=== PATIENT | female | born 1970 | race Hispanic/Latino ===

== ENCOUNTER 2022-08-23 06:22 | Observation (INO) | payer OTHER ==
[2022-08-23 06:39] LABS: Urine Blood Negative (Negative); Urine Glucose Negative (Negative); Urine Protein Negative (Negative); Urine Specific Gravity <=1.005 (1.005-1.030)
[2022-08-23 06:47] LABS: Urine Bacteria None Seen /HPF (<20); Urine RBC <5 /HPF (None Seen)
[2022-08-23] MEDS ORDERED: NA CHLORIDE 0.9% 1,000 ML ONE (06:53)
[2022-08-23] MEDS ORDERED: ONDANSETRON 4 MG/2 ML VIAL ONE (06:53)
[2022-08-23 06:56] LABS: Absolute Lymphocytes (CBC) 1.7 K/uL (0.7-4.9); Hematocrit 42.9 % (36.0-45.0); Lymphocytes % 17.4 % (15.3-44.8); MCV 89.1 fL (80-100); MPV 8.6 fL (7.6-11.3); RBC Red Blood Cell Count 4.81 M/uL (3.86-4.86)
[2022-08-23 07:13] LABS: Albumin 3.7 g/dL (3.4-5.0); Bilirubin Total 0.7 mg/dL (0.2-1.0); Potassium 3.6 mmol/L (3.5-5.1); Protein, Total 7.4 g/dL (6.4-8.2)
[2022-08-23] MEDS ORDERED: KETOROLAC 30 MG/ML INJ ONE (08:10)
--- NOTE | 2022-08-23 09:31 | RAD REPORT ---
EXAM DESCRIPTION: CT - Abdomen Pelvis W Contrast - 08/23/2022 7:29 am CLINICAL HISTORY: abdominal pain COMPARISON: No comparisons TECHNIQUE: Biphasic, helical CT imaging of the abdomen and pelvis was performed following 100 ml non -ionic IV contrast. Oral contrast: No. All CT scans are performed using dose optimization technique as appropriate and may include automated exposure control or mA/KV adjustment according to patient size. FINDINGS: No suspicious findings in the lung bases. The liver, spleen, and pancreas show no suspicious findings. Cholecystectomy clips are present. No bi liary tree dilatation. Symmetric renal function is seen with no hydronephrosis or suspicious renal mass. No pyelonephritis o r acute parenchymal process. No bladder abnormalities. No adrenal abnormalities. A 25 millimeter cyst is present in the medial upper pole right kidney. No dilated bowel loops or bowel wall thickening. No acute GI finding identifiable. The appendix is no rmal. No free air, free fluid or inflammatory stranding. No mass or bulky lymphadenopathy. There is a very minimal 10 mm fat only umbilical hernia. No acute bone finding. There is surgical hardware present at the L4-5 disc level. This does cause romelia e bandlike artifact at this level. No pathologic or acute bone process seen. Arterial calcifications are present. Final written report was delayed due to malfunctioning dictation nodule. Verbal report was telephoned to Dr. Singh 7:44 a.m.. IMPRESSION: Contrast enhanced CT abdomen and pelvis showing no acute or emergent finding. Nonacute findings detailed in the body of the report.
--- NOTE | 2022-08-23 11:42 | ER ---
Nurse's Notes [facility] Name: Jeri Valenzuela Age: 52 yrs Sex: Female : 1970 Arrival Date: 08/23/2022 Time: 06:25 Bed 5 Private MD: Diagnosis: Chest pain, unspecified;Tobacco abuse counseling;Tobacco use;Obesity, unspecified Presentation: 08/23 06:43 Chief complaint: Patient states: "I woke up this morning with severe left sided pain. tw5 It radiates up to the center of my chest. It woke me up from my sleep it was so bad.". Ebola Screen: Patient negative for fever greater than or equal to 101.5 degrees Fahrenheit, and additional compatible Ebola Virus Disease symptoms Patient denies exposure to infectious person. Patient denies travel to an Ebola-affected area in the 21 days before illness onset. Initial Sepsis Screen: Does the patient meet any 2 criteria? RR > 20 per min. HR > 90 bpm. Does the patient have a suspected source of infection? No. Patient's initial sepsis screen is negative. Risk Assessment: Do you want to hurt yourself or someone else? Patient reports no desire to harm self or others. Onset of symptoms was August 23, 2022 at 03:20. 06:43 Method Of Arrival: Wheelchair tw 06:43 Acuity: EMORY 2 tw5 Triage Assessment: 06:56 General: Appears distressed, uncomfortable, Behavior is anxious, crying. Pain: kl Complains of pain in left flank Pain radiates to back of left leg. EENT: No deficits noted. Neuro: No deficits noted. Cardiovascular: No deficits noted. Respiratory: No deficits noted. GI: No deficits noted. No signs and/or symptoms were reported involving the gastrointestinal system. : No deficits noted. No signs and/or symptoms were reported regarding the genitourinary system. Derm: Rash noted that is papular, raised, bilateral upper extremities. Historical: - Allergies: 06:45 Morphine; 06:45 OxyContin; 06:54 Ancef; kl 06:54 Dilaudid; kl - Home Meds: 06:45 'currently out of all meds' [Active]; tw5 - PMHx: 06:45 Hypertensive disorder; 06:54 Arthritis; pulmonary embolus; Chronic pain; kl - Immunization history:: Adult Immunizations not up to date. - Social history:: Smoking status: Patient reports the use of cigarette tobacco products, smokes one pack cigarettes per day. Screenin:00 [facility] ED Fall Risk Assessment (Adult) History of falling in the last 3 months, kl including since admission No falls in past 3 months (0 pts) Confusion or Disorientation No (0 pts) Intoxicated or Sedated No (0 pts) Impaired Gait Yes (1 pt) Mobility Assist Device Used No (0 pt) Altered Elimination No (0 pt) Score/Fall Risk Level 0 - 2 = Low Risk Oriented to surroundings, Maintained a safe environment, Hourly rounding (assess needs \\T\\ fall precautionary measures) done. Abuse screen: Denies threats or abuse. Nutritional screening: No deficits noted. Tuberculosis screening: No symptoms or risk factors identified. Assessment: 06:59 Reassessment: see triage assessment. 07:23 Reassessment: dr gold notified of trop level. kl 08:02 Reassessment:. ld1 08:16 Reassessment: Patient and/or family updated on plan of care and expected duration. Pain ld1 level reassessed. Pt C/O severe left flank pain. Notified ERP. See MAR for orders. 11:02 Reassessment: Patient appears in no apparent distress at this time. Patient and/or ld1 family updated on plan of care and expected duration. Pain level reassessed. Patient is alert, oriented x 3, equal unlabored respirations, skin warm/dry/pink. 11:49 Reassessment: Patient and/or family updated on plan of care and expected duration. Pain ap3 level reassessed. Patient is alert, oriented x 3, equal unlabored respirations, skin warm/dry/pink. 12:00 Reassessment: Report received from ALLISON Zuniga. mb9 12:51 General: Appears in no apparent distress. comfortable, Behavior is calm, cooperative, mb9 appropriate for age. Pain: Complains of pain in LLQ Pain radiates to chest Pain currently is 3 out of 10 on a pain scale. Quality of pain is described as aching. Neuro: Allan Agitation-Sedation Scale (RASS): 0 - Alert and Calm Level of Consciousness is awake, alert, obeys commands, Oriented to person, place, time, situation, Appropriate for age. Cardiovascular: Heart tones S1 S2 present Rhythm is regular. Respiratory: Airway is patent Respiratory effort is even, unlabored, Respiratory pattern is regular, symmetrical, Breath sounds are clear bilaterally. GI: Abdomen is round distended, Bowel sounds present X 4 quads. Abdomen is tender to palpation in left lower quadrant Abd is rigid Reports bloating. : No signs and/or symptoms were reported regarding the genitourinary system. EENT: No signs and/or symptoms were reported regarding the EENT system. Derm: Skin is pink, warm \\T\\ dry. Musculoskeletal: Range of motion: intact in all extremities. Vital Signs: 06:43 BP 161 / 111; Pulse 99; Resp 22; Temp 97.8; Pulse Ox 100% ; Weight 131.54 kg; Height 5 tw5 ft. 8 in. (172.72 cm); Pain 7/10; 06:57 BP 145 / 86; Pulse 94; Resp 18; Temp 98(O); Pulse Ox 99% on R/A; kl 08:02 BP 111 / 81; Pulse 72; Resp 18; Pulse Ox 97% on R/A; ld1 08:16 BP 155 / 102; Pulse 100; Resp 23; Pulse Ox 98% on R/A; Pain 10/10; ld1 08:52 BP 135 / 65; Pulse 72; ap3 10:17 BP 128 / 59; Pulse 79; Pulse Ox 96% ; ap3 11:02 BP 118 / 67; Pulse 74; Resp 18; Pulse Ox 95% on R/A; ld1 11:48 BP 105 / 79; Pulse 81; ap3 12:51 BP 107 / 59; Pulse 68; Resp 20; Pulse Ox 97% on 2 lpm NC; Pain 2/10; mb9 06:43 Body Mass Index 44.09 (131.54 kg, 172.72 cm) tw5 ED Course: 06:25 Patient arrived in ED. jj6 06:37 Jodie Gold MD is Attending Physician. sp3 06:45 Triage completed. tw5 06:45 Inserted saline lock: 20 gauge in right antecubital area, using aseptic technique. jb4 Blood collected. 06:45 Initial lab(s) drawn, by me, sent to lab. jb4 06:59 Troponin High Sensitivity Sent. kl 07:31 CT Abd/Pelvis - PO and IV Contrast In Process Unspecified. EDMS 08:14 Ester Trujillo, RN is Primary Nurse. ld1 09:23 Repeat lab(s) drawn. by ny, sent to lab. [facility] 11:24 Attending Physician role handed off by Jodie Gold MD [facility] 11:24 Richard Haskins MD is Attending Physician. [facility] 11:39 Cristian Vides MD is Hospitalizing Provider. betsey 11:47 SARS RAPID Sent. ap3 21:01 Patient admitted, IV remains in place. mb9 Administered Medications: 06:58 Drug: NS 0.9% 1000 ml Route: IV; Rate: 1 bolus; Site: right antecubital; kl 06:58 Drug: Zofran (Ondansetron) 4 mg Route: IVP; Site: right antecubital; kl 07:06 Not Given (Patient Refused): Dilaudid (HYDROmorphone) 1 mg IVP once kl 08:15 Drug: Ketorolac 30 mg Route: IVP; Site: right antecubital; ld1 09:43 Follow up: Response: No adverse reaction ap3 11:48 Drug: Aspirin Chewable Tablet 324 mg Route: PO; ap3 13:55 Drug: Lovenox (enoxaparin) 100 mg Route: Sub-Q; Site: right lower abdomen; mb9 14:09 Follow up: Response: No adverse reaction mb9 Outcome: 11:41 Decision to Hospitalize by Provider. betsey 21:01 Admitted to Tele accompanied by tech, via wheelchair, with chart, Report called to emir Naik RN 21:01 Condition: stable 21:02 Patient left the ED. emir Signatures: Dispatcher [employer] EDMS Daphnie Duff, RN Richard Sheets MD MD cha Bryson, James RN RN jb4 Nadia Barriga RN RN ap3 Ester Trujillo, ALLISON RN ld1 Jodie Gold MD MD sp3 Wood, Tiffany tw5 Arti Vasquez Jodi jw7 Maddie Arellano, RN RN [email or web address] Corrections: (The following items were deleted from the chart) 09:24 09:24 Troponin High Sensitivity+C.LAB.BRZ drawn and sent. [facility] EDNC
--- NOTE | 2022-08-23 11:42 | EDPHYS ---
Physician Documentation [facility] Name: Jeri Valenzuela Age: 52 yrs Sex: Female : 1970 Arrival Date: 08/23/2022 Time: 06:25 Bed 5 Private MD: LEON Physician Richard Haskins HPI: 08/23 06:49 This 52 yrs old Female presents to ER via Wheelchair with complaints of sp3 Abdominal Pain, Low Back Pain. 06:49 52-year-old female with history of kidney stones, prior pulmonary embolism 3 years ago, sp3 hypertension and now presents with sudden onset of left upper back, left flank, left abdominal pain that started approximately 5 AM today and awoke her from sleep. Patient denies fever, headache, neck pain, chest pain, upper anterior abdominal pain, urinary symptoms, , rash, URI symptoms, travel history, known sick contacts, bad food intake, vomiting, diarrhea, any other aspect of ROS at this time. Pain comes and goes and is sharp in nature. Historical: - Allergies: 06:45 Morphine; tw5 06:45 OxyContin; tw5 06:54 Ancef; kl 06:54 Dilaudid; kl - Home Meds: 06:45 'currently out of all meds' [Active]; tw5 - PMHx: 06:45 Hypertensive disorder; tw5 06:54 Arthritis; pulmonary embolus; Chronic pain; kl - Immunization history:: Adult Immunizations not up to date. - Social history:: Smoking status: Patient reports the use of cigarette tobacco products, smokes one pack cigarettes per day. ROS: 06:51 Constitutional: Negative for fever, chills, and weight loss, Eyes: Negative for injury, sp3 pain, redness, and discharge, Neck: Negative for injury, pain, and swelling, Cardiovascular: Negative for chest pain, palpitations, and edema, Respiratory: Negative for shortness of breath, cough, wheezing, and pleuritic chest pain, MS/Extremity: Negative for injury and deformity, Skin: Negative for injury, rash, and discoloration, Neuro: Negative for headache, weakness, numbness, tingling, and seizure, Psych: Negative for depression, anxiety, suicide ideation, homicidal ideation, and hallucinations, Allergy/Immunology: Negative for hives, rash, and allergies, Endocrine: Negative for neck swelling, polydipsia, polyuria, polyphagia, and marked weight changes, Hematologic/Lymphatic: Negative for swollen nodes, abnormal bleeding, and unusual bruising. 06:51 All other systems are negative. Exam: 06:51 Constitutional: This is a well developed, well nourished patient who is awake, alert, sp3 and in no acute distress. Head/Face: Normocephalic, atraumatic. ENT: Nares patent. No nasal discharge, no septal abnormalities noted. External auditory canals are clear. Oropharynx with no redness, swelling, or masses, exudates, or evidence of obstruction, uvula midline. Mucous membranes moist. Neck: Trachea midline, no thyromegaly or masses palpated, and no cervical lymphadenopathy. Supple, full range of motion without nuchal rigidity, or vertebral point tenderness. No Meningismus. Chest/axilla: Normal chest wall appearance and motion. Nontender with no deformity. No lesions are appreciated. Cardiovascular: Regular rate and rhythm with a normal S1 and S2. No gallops, murmurs, or rubs. Normal PMI, no JVD. No pulse deficits. Respiratory: Lungs have equal breath sounds bilaterally, clear to auscultation and percussion. No rales, rhonchi or wheezes noted. No increased work of breathing, no retractions or nasal flaring. Skin: Warm, dry with normal turgor. Normal color with no rashes, no lesions, and no evidence of cellulitis. MS/ Extremity: Pulses equal, no cyanosis. Neurovascular intact. Full, normal range of motion. Neuro: Awake and alert, GCS 15, oriented to person, place, time, and situation. Cranial nerves II-XII grossly intact. Motor strength 5/5 in all extremities. Sensory grossly intact. Cerebellar exam normal. Normal gait. Psych: Awake, alert, with orientation to person, place and time. Behavior, mood, and affect are within normal limits. 06:51 Abdomen/GI: Patient has pain to palpation left lower abdomen. Also left CVA tenderness.. Vital Signs: 06:43 BP 161 / 111; Pulse 99; Resp 22; Temp 97.8; Pulse Ox 100% ; Weight 131.54 kg; Height 5 tw5 ft. 8 in. (172.72 cm); Pain 7/10; 06:57 BP 145 / 86; Pulse 94; Resp 18; Temp 98(O); Pulse Ox 99% on R/A; kl 08:02 BP 111 / 81; Pulse 72; Resp 18; Pulse Ox 97% on R/A; ld1 08:16 BP 155 / 102; Pulse 100; Resp 23; Pulse Ox 98% on R/A; Pain 10/10; ld1 08:52 BP 135 / 65; Pulse 72; ap3 10:17 BP 128 / 59; Pulse 79; Pulse Ox 96% ; ap3 11:02 BP 118 / 67; Pulse 74; Resp 18; Pulse Ox 95% on R/A; ld1 11:48 BP 105 / 79; Pulse 81; ap3 12:51 BP 107 / 59; Pulse 68; Resp 20; Pulse Ox 97% on 2 lpm NC; Pain 2/10; mb9 06:43 Body Mass Index 44.09 (131.54 kg, 172.72 cm) tw5 MDM: 06:39 Patient medically screened. sp3 06:52 Data reviewed: vital signs, nurses notes, lab test result(s), EKG, radiologic studies. sp3 ED course: 52-year-old female with complex medical history presents again for left-sided pain and symptoms. Differential diagnosis is broad and includes kidney stone, pulmonary embolism, cardiac event, vascular/aorta event, functional abdominal pain, pyelonephritis, UTI bowel obstruction, among others. Not highly suspicious for [employer]IST etiology. We will differentiate these possibilities with the following work-up which will consist of laboratory values, urine analysis, EKG, CT scan of the chest abdomen and pelvis with IV and p.o. contrast. Physician TBD and will be signed out to daytime physician for final disposition. Dilaudid and Zofran IV for pain control.. 08/23 06:39 Order name: CBC with Diff; Complete Time: 07:47 sp3 08/23 06:39 Order name: CMP; Complete Time: 07:47 sp3 08/23 06:39 Order name: Lipase; Complete Time: 07:47 sp3 08/23 06:39 Order name: Urine Microscopic Only; Complete Time: 07:47 sp3 08/23 06:39 Order name: Urine Dipstick-Ancillary EDMS 08/23 06:40 Order name: Test, Serum; Complete Time: 07:47 tw5 08/23 06:49 Order name: Troponin High Sensitivity; Complete Time: 07:47 sp3 08/23 07:22 Order name: Quantitative Hcg; Complete Time: 07:47 kl 08/23 07:49 Order name: Troponin High Sensitivity: Two hours after first draw; Complete Time: 11:24 sp3 08/23 11:39 Order name: SARS RAPID; Complete Time: 13:38 betsey 08/23 12:57 Order name: D-Dimer; Complete Time: 13:38 EDMS 08/23 13:02 Order name: Creatine Phosphokinase EDMS 08/23 13:02 Order name: Lipid Profile EDMS 08/23 13:02 Order name: Magnesium EDMS 08/23 06:39 Order name: CT Abd/Pelvis - PO and IV Contrast; Complete Time: 11:24 sp3 08/23 13:02 Order name: Echo with Doppler EDMS 08/23 13:02 Order name: Phosphorus EDMS 08/23 13:02 Order name: T4 Free EDMS 08/23 13:02 Order name: Thyroid Stimulating Hormone EDMS 08/23 13:02 Order name: Urinalysis EDMS 08/23 13:02 Order name: Basic Metabolic Panel EDMS 08/23 13:02 Order name: Basic Metabolic Panel EDMS 08/23 13:02 Order name: CBC with Automated Diff EDMS 08/23 13:02 Order name: CBC with Automated Diff EDMS 08/23 13:02 Order name: NT PRO-BNP EDMS 08/23 13:02 Order name: NT PRO-BNP EDMS 08/23 13:40 Order name: US Extremity Venous W Compression Bruce betsey 08/23 13:49 Order name: Troponin High Sensitivity EDMS 08/23 14:46 Order name: US EDMS 08/23 19:18 Order name: Troponin High Sensitivity EDMS 08/23 06:39 Order name: IV Saline Lock; Complete Time: 06:58 sp3 08/23 06:39 Order name: Labs collected and sent; Complete Time: 06:58 sp3 08/23 06:39 Order name: Urine Dipstick-Ancillary (obtain specimen); Complete Time: 06:39 sp3 08/23 06:49 Order name: EKG - Nurse/Tech; Complete Time: 06:58 sp3 08/23 13:02 Order name: CONS Physician Consult EDMS 08/23 13:02 Order name: Heart Healthy EDMS 08/23 15:43 Order name: CT EDMS Administered Medications: 06:58 Drug: NS 0.9% 1000 ml Route: IV; Rate: 1 bolus; Site: right antecubital; kl 06:58 Drug: Zofran (Ondansetron) 4 mg Route: IVP; Site: right antecubital; kl 07:06 Not Given (Patient Refused): Dilaudid (HYDROmorphone) 1 mg IVP once kl 08:15 Drug: Ketorolac 30 mg Route: IVP; Site: right antecubital; ld1 09:43 Follow up: Response: No adverse reaction ap3 11:48 Drug: Aspirin Chewable Tablet 324 mg Route: PO; ap3 13:55 Drug: Lovenox (enoxaparin) 100 mg Route: Sub-Q; Site: right lower abdomen; mb9 14:09 Follow up: Response: No adverse reaction mb9 Disposition Summary: 08/23/22 11:41 Hospitalization Ordered Hospitalization Status: Observation betsey Provider: Cristian Vides cha Location: Telemetry/[facility]Sur (observation) betsey Condition: Stable betsey Problem: new betsey Symptoms: have improved betsey Bed/Room Type: Standard betsey Room Assignment: 409(08/23/22 19:00) eb1 Diagnosis - Chest pain, unspecified betsey - Tobacco abuse counseling betsey - Tobacco use betsey - Obesity, unspecified betsey Forms: - Medication Reconciliation Form betsey - SBAR form betsey Signatures: Dispatcher [employer] EDMS Daphnie Duff RN RN kl Anderson, Corey, MD MD cha Prokisch, Amanda, RN RN ap3 Paty Dennis RN RN eb1 Ester Trujillo RN RN ld1 Jodie Singh MD MD sp3 Wood, Tiffany tw5 Maddie Arellano RN RN mb9 Corrections: (The following items were deleted from the chart) 06:39 06:39 Urine Test ordered. sp3 tw5 09:24 07:49 Troponin High Sensitivity+C.LAB.BRZ ordered. EDKS EDMS 19:00 11:41 betsey eb1
[2022-08-23] MEDS ORDERED: ASPIRIN 81 MG CHEWABLE TABLET ONE (11:46)
[2022-08-23 12:05] LABS: SARS-CoV-2 Antigen Rapid Res Negative (Negative)
[2022-08-23] MEDS ORDERED: ACETAMINOPHEN 325 MG TABLET PO PRN (12:52)
[2022-08-23] MEDS ORDERED: ONDANSETRON 4 MG/2 ML VIAL IV PRN (12:57)
--- NOTE | 2022-08-23 13:06 | P.HP ---
Certification for Inpatient Patient admitted to: Observation With expected LOS: <2 Midnights Patient will require the following post-hospital care: None Practitioner: I am a practitioner with admitting privileges, knowledge of patient current condition, hospital course, and medical plan of care. Services: Services provided to patient in accordance with Admission requirements found in Title 42 Section 412.3 of the Code of Federal Regulations <Brice Boston - Last Filed: 08/23/22 13:47> Patient History Date of Service: 08/23/22 Reason for admission: chest pain, abd pain History of Present Illness: Patient is a 52-year-old female with a past medical history significant for PE, hypertension, obesity, osteoarthritis, nicotine dependence, chronic pain syndrome who presents with complaint of chest pain onset this morning. Patient reported that she initially started having upper back pain earlier this morning and pain radiated to her left upper quadrant as well as her left chest area. Patient rated pain as 8/10 in severity and described pain as sharp constant in quality. Patient reported associated signs and symptoms of nausea, headache and shortness of breath. Patient denies any other signs and symptoms. Symptoms are aggravated or relieved by nothing. Patient decided to present to the hospital due to worsening symptoms. - Past Medical/Surgical History -: Osteoarthritis -: Nicotine dependence -: Pulmonary embolism -: Chronic pain syndrome -: Hypertension. Past Surgical History: Reviewed- Non-Contributory - Family History Family History: Reviewed- Non-Contributory - Social History Smoking Status: Current every day smoker Counseled patient to stop smoking for: less than 10 minutes Smoking therapy provided: Yes Patient receptive to therapy: Yes Alcohol use: No CD- Drugs: No Caffeine use: Yes Place of Residence: Home <Brice Boston - Last Filed: 08/23/22 13:47> Date of Service: 08/23/22 <Cristian Vides - Last Filed: 08/23/22 20:10> Allergies cefazolin [From Ancef] Allergy (Verified 08/23/22 13:08) UNK hydromorphone [From Dilaudid] Allergy (Verified 08/23/22 13:08) UNK morphine Allergy (Verified 08/23/22 13:08) UNK oxycodone [From OxyContin] Allergy (Verified 08/23/22 13:08) UNK Review of Systems General: Unremarkable Eyes: Unremarkable ENT: Unremarkable Respiratory: Shortness of Breath Cardiovascular: Chest Pain Gastrointestinal: Nausea, Abdominal Pain Genitourinary: Unremarkable Musculoskeletal: Back Pain Integumentary: Unremarkable Neurological: Other (Headache ), Unremarkable Lymphatics: Unremarkable <LudyBrice Saeed - Last Filed: 08/23/22 13:47> Physical Examination - Physical Exam General: Alert, In no apparent distress, Oriented x3, Cooperative HEENT: Atraumatic, PERRLA, Mucous membr. moist/pink, EOMI, Sclerae nonicteric Neck: Supple, 2+ carotid pulse no bruit, JVD not distended, No LAD, Without JVD or thyroid abnormality Respiratory: Diminished Cardiovascular: No edema, Regular rate/rhythm, Normal S1 S2 Capillary refill: <2 Seconds Gastrointestinal: Normal bowel sounds, Soft and benign, Tenderness Musculoskeletal: No clubbing, No swelling, No tenderness Integumentary: No rashes, No breakdown, No significant lesion Neurological: Normal speech, Normal tone, Normal affect Lymphatics: No axilla or inguinal lymphadenopathy - Studies Laboratory Data (last 24 hrs) 08/23/22 06:45: Sodium 139, Potassium 3.6, BUN 7, Creatinine 0.74, Glucose 101, Total Bilirubin 0.7, AST 9 L, ALT 20, Alkaline Phosphatase 136 H, Lipase 93 08/23/22 06:45: WBC 9.50, Hgb 14.5, Hct 42.9, Plt Count 255 <Brice Boston - Last Filed: 08/23/22 13:47> - Studies Laboratory Data (last 24 hrs) 08/23/22 06:45: Sodium 139, Potassium 3.6, BUN 7, Creatinine 0.74, Glucose 101, Total Bilirubin 0.7, AST 9 L, ALT 20, Alkaline Phosphatase 136 H, Lipase 93 08/23/22 06:45: WBC 9.50, Hgb 14.5, Hct 42.9, Plt Count 255 <Cristian Vides - Last Filed: 08/23/22 20:10> Assessment and Plan - Plan --Chest pain. To rule out ACS. Will trend troponins--currently elevated. Echocardiogram pending to assess cardiac structures and functions. Cardiology consulted. Telemetry to monitor for any significant arrhythmia. We will await further recommendation from lapping machine operator. --History of PE. Continue Lovenox subQ --Osteoarthritis\chronic pain syndrome. We will manage pain with current pain medication regimen. -- Obesity. Likely secondary to excess calories intake. Patient counseled on weight reduction, diet and excise therapy. --Nicotine dependence. Patient placed on nicotine patch and counseled on tobacco cessation. --Elevated D-dimer. CTA PE chest protocol pending to rule out PE. Continue supportive care --Abdominal pain. CT abdomen unremarkable for any intra-abdominal abnormality. We will manage pain with current pain medication regimen. --DVT prophylaxis with Lovenox subQ. Discharge Plan: Home Plan to discharge in: 48 Hours - Advance Directives Does patient have a Living Will: No Does patient have a Durable POA for Healthcare: No - Code Status/Comfort Care Code Status Assessed: Yes Physician Review: Patient Assessed, Agree with Above Assessment and Plan Critical Care: No <Brice Boston - Last Filed: 08/23/22 13:47> Physician Review: Patient Assessed, Agree with Above Assessment and Plan <Cristian Vides - Last Filed: 08/23/22 20:10>
[2022-08-23 13:50] LABS: Phosphorus 4.1 mg/dL (2.5-4.9); Thyroid Stimulating Hormone 1.52 uIU/mL (0.358-3.740)
[2022-08-23] MEDS ORDERED: ENOXAPARIN 100 MG/ML SYR SQ ONE (13:55)
[2022-08-23] MEDS ORDERED: HYDROCODONE/APAP 5/325 MG TAB ONE (14:42)
[2022-08-23] MEDS: HYDROCODONE/APAP 5/325 MG TAB PO PRN ×2 (14:44→22:02)
--- NOTE | 2022-08-23 14:45 | RAD REPORT ---
EXAM DESCRIPTION: USExtrem Venous W Compress Bil08/23/2022 2:25 pm CLINICAL HISTORY: Leg pain COMPARISON: none FINDINGS: The common femoral, superficial femoral, greater saphenous, popliteal and posterior tibial veins bilaterally are compressible and demonstrate augmentation. Doppler demonstrates good flow. Grayscale, color and spectral analysis performed on all vessels IMPRESSION: No evidence of deep venous thrombosis involving either lower extremity.
[2022-08-23 14:55] VITALS: BMI 44.1
--- NOTE | 2022-08-23 15:42 | RAD REPORT ---
EXAM DESCRIPTION: CT - Chest For Pe Angio - 08/23/2022 3:20 pm CLINICAL HISTORY: Chest pain COMPARISON: None. TECHNIQUE: Dynamically enhanced axial 3 mm thick images of the chest were obtained during administra tion of <100> mL Isovue 370 IV contrast. Coronal and oblique reconstruction images were generated and reviewed. Exam utilizes a protocol for optimal evaluation of pulmonary arterial tree. Maximum intensity projections 3D imaging was utilized All CT scans are performed using dose optimization technique as appropriate and may include automated exposure control or mA/KV adjustment according to patient size. FINDINGS: Very thin linear low-density is present within the left lower lobe pulmonary artery. Other griffin, no pulmonary embolism. A thoracic aortic aneurysm is not noted. A pleural effusion is not seen. A pericardial effusion is not seen. A lung consolidation is not present. IMPRESSION: Very thin low-density area within the left lower lobe pulmonary artery is equivocal for old very small chronic thrombus. . No acute pulmonary embolism
--- NOTE | 2022-08-23 16:23 | CON ---
Date of Consultation: 08/23/2022 Reason For Consultation: Chest pain. History Of Present Illness: A 52-year-old female with history of hypertension, obesity, psoriasis, P E, presented with pain started in her mid back on the left side, traveled all the way around the [facility] to the chest and when it traveled to the chest, start feeling concerned so she came into the emerg ency room. There is no skin rash. No fever. Past Medical History: As outlined above in the HPI. Medications: Refer to reconciliation sheet for detailed list. Allergies: CEFAZOLIN, HYDROMORPHONE, MORPHINE, AND OXYCODONE. Family History: No premature coronary artery disease or cancer. Social History: She is a smoker half pack per day. Does not drink, use any drugs. Review of Systems: All systems reviewed and they were negative except what mentioned in HPI. Physical Examination: Vital Signs: Reviewed. Head and Neck: Pupils are equal, reactive to light. Intact eye movements. No JVD. No cervical lym phadenopathy. Neck is supple. Thyroid is not enlarged. Lungs: Clear to auscultation bilaterally. No rhonchi, wheezing, or crackles. No accessory muscle u se. Heart: Regular rate and rhythm. No extra sounds. Abdomen: Soft, nontender. Bowel sounds positive. No organomegaly. No masses or hernia. No rigidi ty or rebound. Extremities: No edema, clubbing, or cyanosis. Intact pulses. Skin: No rash. Neurologic: Alert, awake, oriented x3. No acute focal deficits appreciated. Lymph Nodes: No cervical or axillary lymphadenopathy. Investigations: Troponin was slightly elevated at 62. CTA of the chest, no acute PE. Lower extremi ty venous Doppler was negative. BUN 7, creatinine 0.74. Assessment And Recommendations: 1.Chest pain, atypical. Troponin was mildly elevated and then trended normal. She is a smoker. Th e patient will need an exercise stress test to further evaluate this issue. Meanwhile, continue aspi rin for pain control. 2.Lower back pain and abdominal pain. Urinalysis is negative. Had a CT scan of the abdomen and pel vis that showed no acute findings. The distribution of the pain follows dermatome, so this could be a beginning of shingles. The patient needs to be monitored for skin rash. SR/MODL Voice ID: [id number] Report ID: [id number]
[2022-08-24 04:13] LABS: Absolute Lymphocytes (CBC) 1.8 K/uL (0.7-4.9); Lymphocytes % 24.8 % (15.3-44.8); MPV 8.9 fL (7.6-11.3); RBC Red Blood Cell Count 4.33 M/uL (3.86-4.86)
[2022-08-24 04:37] LABS: Potassium 4.2 mmol/L (3.5-5.1)
[2022-08-24 08:25] VITALS: BP 126/60; TEMP 99.4
[2022-08-24] MEDS: HYDROCODONE/APAP 5/325 MG TAB PO PRN (08:38)
[2022-08-24] MEDS ORDERED: NICOTINE 21 MG/PAT TD SCH (09:00)
[2022-08-24] MEDS ORDERED: ASPIRIN 81 MG CHEWABLE TABLET PO SCH (09:00)
[2022-08-24] MEDS ORDERED: ENOXAPARIN 40 MG/0.4 ML SQ SCH (09:00)
[2022-08-24 09:40] VITALS: O2SAT 91
--- NOTE | 2022-08-24 11:53 | P.DS ---
Admission Date: 08/23/22 Discharge Date: 08/24/22 Disposition: ROUTINE DISCHARGE Discharge Condition: GOOD Reason for Admission: chest pain, abd pain Consultations: 1. Cardiology Hospital Course: DIAGNOSES: # Atypical Chest Pain # Elevated D-Dimer with History of Pulmonary Embolism # Positive beta-hCG screen # Chronic Pain Syndrome # Tobacco Use Disorder # Morbid Obesity - BMI 44.1 kg/m2 HOSPITAL COURSE: Ms. Jeri Valenzuela is a pleasant 52-year-old female with a past medical history significant for chronic pain syndrome and tobacco use disorder who was admitted to the [facility] on 08/23/2022 for chest discomfort. She was admitted to the Medicine service. Upon further evaluation, her troponin trend remained flat. Her EKG was without STEMI criteria. She was found to have a mildly elevated D-dimer at 604. A bilateral lower extremity Doppler revealed, "no evidence of deep venous thrombosis involving either lower extremity." A CT chest angiogram revealed, "very thin low-density area within the left lower lobe pulmonary artery is equivocal for old very small chronic thrombus. No acute pulmonary embolism." Cardiology was consulted and she was evaluated by Dr. Jackson. He has cleared her for discharge with outpatient work-up. Incidentally, she was found to have a positive beta hCG screen. The value was not high enough to indicate a . Additionally, she is s/p hysterectomy. I explained to her that this is concerning for possible underlying ovarian malignancy, to which she replied that this runs in her family. I highly advised that she follow-up with conveyor line battery charger as soon as possible for further evaluation for possible underlying ovarian malignancy. She verbalized understanding and agreed to make an appointment with Dr. Das. On 08/24/2022, she was seen on morning rounds and deemed medically stable for discharge. She was discharged with instructions to schedule follow-up appointments with her PCP, with Cardiology (Dr. Jackson), and with Senior Software Quality Engineer (Dr. Das). She was given the opportunity to ask questions and reported no further questions. Furthermore, all questions were answered to the best of my ability. A copy of this discharge summary will be sent to the above providers to facilitate continuity of care. Today, I personally spent 25 minutes on her case, of which greater than 50% of the time was spent in patient education, counseling, and coordination of care as described above. Vital Signs/Physical Exam: Temp Pulse Resp BP Pulse Ox 99.4 F 98 H 19 126/60 90 L 08/24/22 08:00 08/24/22 08:00 08/24/22 09:38 08/24/22 08:00 08/24/22 09:38 General: Alert, In no apparent distress, Oriented x3 HEENT: Atraumatic, Mucous membr. moist/pink, EOMI, Sclerae nonicteric Neck: JVD not distended Respiratory: Clear to auscultation bilaterally, Normal air movement Cardiovascular: No edema, Regular rate/rhythm, Normal S1 S2, No gallops, No rubs, No murmurs Gastrointestinal: Normal bowel sounds, Soft and benign, Non-distended, No tenderness, No rebound, No guarding Musculoskeletal: No clubbing Integumentary: No rashes Neurological: Normal speech, Cranial nerves 3-12 intact, Normal affect Laboratory Data at Discharge: WBC 7.40 K/uL (4.3-10.9) 08/24/22 03:42 Hgb 13.0 g/dL (12.0-15.0) D 08/24/22 03:42 Hct 39.0 % (36.0-45.0) 08/24/22 03:42 Plt Count 212 K/uL (152-406) 08/24/22 03:42 Sodium 140 mmol/L (136-145) 08/24/22 03:42 Potassium 4.2 mmol/L (3.5-5.1) D 08/24/22 03:42 BUN 10 mg/dL (7-18) 08/24/22 03:42 Creatinine 0.72 mg/dL (0.55-1.02) 08/24/22 03:42 Glucose 97 mg/dL (74-106) 08/24/22 03:42 Phosphorus 4.1 mg/dL (2.5-4.9) 08/23/22 13:17 Magnesium 2.0 mg/dL (1.6-2.4) 08/23/22 13:17 Total Bilirubin 0.7 mg/dL (0.2-1.0) 08/23/22 06:45 AST 9 U/L (15-37) L 08/23/22 06:45 ALT 20 U/L (13-56) 08/23/22 06:45 Alkaline Phosphatase 136 U/L (45-117) H 08/23/22 06:45 Triglycerides 97 mg/dL (<150) 08/24/22 03:42 Cholesterol 152 mg/dL (<200) 08/24/22 03:42 HDL Cholesterol 46 mg/dL (40-60) 08/24/22 03:42 Cholesterol/HDL Ratio 3.30 08/24/22 03:42 Lipase 93 U/L (73-393) 08/23/22 06:45 Home Medications: RX: Duloxetine HCl [Cymbalta] 60 mg PO 1X 08/23/22 RX: Lisinopril [Zestril] 20 mg PO 1X 08/23/22 RX: Venlafaxine HCl [Venlafaxine HCl ER] 150 mg PO 1X 08/23/22 Aspirin [Sangamon Aspirin] 81 mg PO DAILY #1 tab.chew 08/24/22 New Medications: Aspirin [Sangamon Aspirin] 81 mg PO DAILY #1 tab.chew Physician Discharge Instructions: 1. Please call and schedule a follow-up appointment with your PCP in 3-5 days 2. Please call and schedule a follow-up appointment with Cardiology (Dr. Jackson) in 3-5 days - He will schedule you for an outpatient cardiac stress test 3. Please call and schedule a follow-up appointment with Senior Software Quality Engineer (Dr. Das) in 5-7 days - As we discussed, please have her initiate an evaluation for ovarian cancer Diet: Regular Activity: Ad theodore Followup: Galdino Jackson MD [ACTIVE - CAN ADMIT] - 2-3 Days (Call for appointment.) Alicia Das MD [ACTIVE - CAN ADMIT] - 1 Week (Call for appointment.) NONE,NONE [Primary Care Provider] - 2-3 Days (Call for appointment.) Time spent managing pt's care (in minutes): 25
--- NOTE | 2022-08-24 15:25 | EKG ---
Test Date: 2022-08-23 Test Time: 06:54:24 Zoo Veterinarian: RV MEASUREMENT RESULTS: Intervals: Rate: 80 CA: 144 QRSD: 84 QT: 370 QTc: 426 Clark: P: 76 CA: 144 QRS: 80 T: 72 INTERPRETIVE STATEMENTS: Normal sinus rhythm Normal ECG No previous ECG available for comparison Electronically Signed On 08-24-22 15:22:16 CHANNELING MACHINE RUNNER by Kristian Ibarra
--- NOTE | 2022-08-25 07:00 | ECHO ---
HEIGHT: 5 ft 8 in WEIGHT: 290 lb 0 oz DATE OF STUDY: 08/24/[address]: Brice Boston 2-DIMENSIONAL: YES M.MODE: YES DOPPLER: YES COLOR FLOW: YES TDS: YES PORTABLE: YES DEFINITY: BUBBLE STUDY: DIAGNOSIS: CHEST PAIN CARDIAC HISTORY: CATHERIZATION: NO SURGERY: NO PROSTHETIC VALVE: NO PACEMAKER: NO MEASUREMENTS (cm) DIASTOLIC (NORMALS) SYSTOLIC (NORMALS) IVSd 1.2 (0.6-1.2) LA Diam 3.2 (1.9-4.0) LVEF 57% LVIDd 5.2 (3.5-5.7) LVIDs 3.6 (2.0-3.5) %FS 30% LVPWd 1.3 (0.6-1.2) Ao Diam 2.8 (2.0-3.7) 2 DIMENSIONAL ASSESSMENT: RIGHT ATRIUM: NORMAL LEFT ATRIUM: NORMAL RIGHT VENTRICLE: NORMAL LEFT VENTRICLE: NORMAL TRICUSPID VALVE: MILD TRICUSPID REGURGITATION MITRAL VALVE: MILD MITRAL REGURGITATION PULMONIC VALVE: NORMAL AORTIC VALVE: NORMAL PERICARDIAL EFFUSION: TRACE AORTIC ROOT: NORMAL LEFT VENTRICULAR WALL MOTION: NORMAL DOPPLER/COLOR FLOW: SEE BELOW COMMENTS: 1. NORMAL LEFT VENTRICULAR EJECTION FRACTION 55-60% 2. MILD MITRAL REGURGITATION 3. MILD TRICUPSID REGURGITATION 4. POOR WINDOWS TECHNOLOGIST: SEJAL RAY
== END 2022-08-24 12:25 | disposition home or self-care (01) ==
LOC: ER 06:22 → ERHOLD 12:50 → 4TH 19:16
PROVIDERS: ADMIT Internal Medicine; ATTEND Internal Medicine
DX: R07.9 Chest pain, unspecified (principal); G89.4 Chronic pain syndrome; I10 Essential (primary) hypertension; M19.90 Unspecified osteoarthritis, unspecified site; M54.59 Other low back pain; R10.9 Unspecified abdominal pain; E66.01 Morbid (severe) obesity due to excess calories; F17.200 Nicotine dependence, unspecified, uncomplicated; R79.89 Other specified abnormal findings of blood chemistry; L40.9 Psoriasis, unspecified; Z88.6 Allergy status to analgesic agent; Z88.8 Allergy status to other drugs, medicaments and biological substances; Z86.711 Personal history of pulmonary embolism; Z68.41 Body mass index [BMI] 40.0-44.9, adult; Z32.01 Encounter for pregnancy test, result positive; Z20.822 Contact with and (suspected) exposure to COVID-19; Z71.6 Tobacco abuse counseling
CPT/HCPCS: 93005; 93306; 85025 ×2; 80048; 36415 ×2; 83735; 82550; 84703; 84100; 80061; 85379; 84702; 84443; 84484 ×4; 84439; 83690; 80053; 83880; 71275; 74177; 93970; 96375; 96372; 96374; 99285; 87811; Q9967 ×2; J1650; J7030; J2405; G0378 ×3; 81003; 81015

== ENCOUNTER → 2023-10-24 | Emergency (ER) | payer OTHER ==
[~2023-10-24] MED LIST: ACETAMINOPHEN 325 MG TABLET ONE; ALBUTEROL 2.5 MG/3 ML NEB SOL ONE; IPRATROPIUM BROM 0.5MG/2.5ML ONE; predniSONE 20 MG TAB ONE
--- NOTE | 2023-10-24 18:15 | RAD REPORT ---
EXAM DESCRIPTION: Marjorie Single View10/24/2023 5:36 pm CLINICAL HISTORY: Cough COMPARISON: none FINDINGS: The lungs appear clear of acute infiltrate. The heart is normal size IMPRESSION: No acute abnormalities displayed
--- NOTE | 2023-10-24 21:28 | EDPHYS ---
Physician Documentation [facility] Name: Jeri Valenzuela Age: 53 yrs Sex: Female : 1970 Arrival Date: 10/24/2023 Time: 16:44 Bed 11 Private MD: ED Physician Aguila Fox HPI: 10/23 19:37 This 53 yrs old Female presents to ER via Wheelchair with complaints of kb Breathing Difficulty, Flu Symptoms. 19:37 patient is a 53-year-old female who presents for shortness of breath, cough, kb congestion, fever, chills, sore throat and rhinorrhea that started 4 days ago. Denies nausea, vomiting, diarrhea, abdominal pain . Historical: - Allergies: 17:07 Ancef; tl4 17:07 Dilaudid; tl4 17:07 Morphine; tl4 17:07 OxyContin; tl4 - Home Meds: 17:08 None [Active]; tl4 - PMHx: 17:07 Arthritis; Chronic pain; Hypertensive disorder; pulmonary embolus; tl4 - Immunization history:: Adult Immunizations unknown. - Social history:: Smoking status: Patient reports the use of cigarette tobacco products, smokes one pack cigarettes per day. ROS: 19:36 Constitutional: As per HPI kb Exam: 19:35 Constitutional: This is a well developed, well nourished patient who is awake, alert, kb and in no acute distress. Head/Face: Normocephalic, atraumatic. ENT: Moist Mucous membranes Cardiovascular: Regular rate Abdomen/GI: Soft, non-tender. No distention Skin: Warm, dry with normal turgor. Normal color. MS/ Extremity: Pulses equal, no cyanosis. Neurovascular intact. Full, normal range of motion. Neuro: Awake and alert, GCS 15, oriented to person, place, time, and situation. Moves all extremities. Normal gait. 19:35 ECG was reviewed by the Attending Physician. 19:35 Respiratory: the patient does not display signs of respiratory distress, Respirations: normal, Breath sounds: wheezing: expiratory that is mild, is heard diffusely, Vital Signs: 17:04 BP 157 / 92; Pulse 117; Resp 22; Temp 100.9(O); Pulse Ox 96% on R/A; Weight 123.38 kg; tl4 Height 5 ft. 7 in. ; Pain 8/10; 19:20 BP 147 / 94; Pulse 105; Resp 22 S; Pulse Ox 98% on R/A; ha1 21:00 BP 145 / 95; Pulse 92; Resp 20 S; Temp 98.2(O); Pulse Ox 97% on R/A; ha1 21:39 BP 128 / 79; Pulse 95; Resp 20 S; Pulse Ox 95% on R/A; ha1 17:04 Body Mass Index 42.60 (123.38 kg, 170.18 cm) tl4 17:04 Pain Scale: Adult tl4 MDM: 16:49 Patient medically screened. kb 19:36 Data reviewed: vital signs, nurses notes. kb 19:36 Differential diagnosis: flu, covid, uri. kb 21:27 Differential Diagnosis: Bronchitis Influenza Upper Respiratory Infection Other copd. kb Counseling: I had a detailed discussion with the patient and/or guardian regarding the historical points, exam findings, and any diagnostic results supporting the discharge/admit diagnosis, lab results, radiology results, the need for outpatient follow up, a family practitioner, to return to the emergency department if symptoms worsen or persist or if there are any questions or concerns that arise at home. 10/23 17:12 Order name: Flu; Complete Time: 21:21 kb 10/23 17:12 Order name: COVID-19 SARS RT PCR; Complete Time: 21:21 kb 10/23 17:12 Order name: Strep kb 10/23 20:12 Order name: Throat Culture EDKS 10/23 17:12 Order name: Chest Single View XRAY; Complete Time: 18:19 kb 10/23 19:21 Order name: EKG - Nurse/Tech; Complete Time: 19:32 ha1 EC:35 Rate is 96 beats/min. Rhythm is regular. QRS Delta is Normal. [place] interval is normal at kb 138 msec. QRS interval is normal at 88 msec. QT interval is normal at 434 msec. Administered Medications: 19:40 Drug: Albuterol Inhalation 2.5 mg Inhalation once Route: Inhalation; ha1 20:20 Follow up: Response: No adverse reaction; Marked relief of symptoms ha1 19:40 Drug: Ipratropium Inhalation Aerosol 0.5 mg Inhalation once Route: Inhalation; ha1 20:20 Follow up: Response: No adverse reaction; Marked relief of symptoms ha1 19:40 Drug: Acetaminophen PO 650 mg PO once Route: PO; ha1 20:20 Follow up: Response: No adverse reaction; Marked relief of symptoms ha1 19:40 Drug: predniSONE PO 40 mg PO once Route: PO; ha1 20:15 Follow up: Response: No adverse reaction; Marked relief of symptoms ha1 21:39 Drug: Albuterol Inhalation 2.5 mg Inhalation once Route: Inhalation; ha1 22:03 Follow up: Response: No adverse reaction ha1 Disposition Summary: 10/24/23 21:27 Discharge Ordered Notes: Location: Home kb Condition: Stable kb Diagnosis - Fever, unspecified kb - Cough kb Followup: kb - With: Emergency Department - When: As needed - Reason: Worsening of condition Followup: kb - With: Private Physician - When: 2 - 3 days - Reason: Recheck today's complaints, Continuance of care, Re-evaluation by your physician Discharge Instructions: - Discharge Summary Sheet kb - Acute Bronchitis, Adult, [id number] kb Forms: - Medication Reconciliation Form kb - Thank You Letter kb - Antibiotic Education kb - Prescription Opioid Use kb - Patient Portal Instructions kb - Leadership Thank You Letter kb Prescriptions: - Prednisone 20 mg Oral Tablet - take 1 tablet ORAL route once daily for 5 days; 5 tablet; Refills: 0, Product kb Selection Permitted - Albuterol Sulfate 2.5 mg /3 mL (0.083 %) Inhalation Solution for Nebulization - inhale 1 unit NEBULIZATION route every 8 hours As needed Dispense one box; 1 kb unit; Refills: 0, Product Selection Permitted - Zithromax 500 mg Oral Tablet - take 1 tablet ORAL route once daily for 5 days; 5 tablet; Refills: 0, Product kb Selection Permitted Addendum: 10/29/2023 06:59 Co-signature as Attending Physician, Aguila Fox MD I reviewed the patient's care r n provided by the Advanced Practice Provider and agree with the diagnosis and treatment plan. Signatures: Dispatcher [employer] Genia Ashford, FRANCISCA-Julio César ESPINOSA-Aguila Deal MD MD rn Ayala, Heidy RN RN ha1 Franklin Herron RN RN tl4 Corrections: (The following items were deleted from the chart) 10/23 17:09 17:07 Home Meds: 'currently out of all meds'; tl4 tl4 21: 21:27 Acute bronchitis, unspecified kb kb
--- NOTE | 2023-10-24 21:28 | ER ---
Nurse's Notes [facility] Name: Jeri Valenzuela Age: 53 yrs Sex: Female : 1970 Arrival Date: 10/24/2023 Time: 16:44 Bed 11 Private MD: Diagnosis: Fever, unspecified;Cough Presentation: 10/23 17:01 Chief complaint: Patient states: Pt c/o progressively worsening dyspnea, cough, tl4 congestion, sore throat, nasal congestion, fever/chills since Sunday. Coronavirus screen: Client presents with at least one sign or symptom that may indicate coronavirus-19. 17:01 Method Of Arrival: Wheelchair tl4 17:04 Ebola Screen: No symptoms or risks identified at this time. Initial Sepsis Screen: Does tl4 the patient meet any 2 criteria? No. Patient's initial sepsis screen is negative. Does the patient have a suspected source of infection? No. Patient's initial sepsis screen is negative. Risk Assessment: Do you want to hurt yourself or someone else? Patient reports no desire to harm self or others. Onset of symptoms was October 20, 2023. 17:04 Acuity: EMORY 3 tl4 Triage Assessment: 17:09 General: Appears distressed, uncomfortable, Behavior is cooperative. Pain: Complains of tl4 pain in right ear, left ear, chest and neck. EENT: Reports difficulty swallowing nasal congestion pain in left ear and right ear. Neuro: No deficits noted. Cardiovascular: Denies chest pain, diaphoresis, lightheadedness, palpitations, syncope. Respiratory: Reports shortness of breath cough that is pain with cough Onset: The symptoms/episode began/occurred 3 days, the patient has mild shortness of breath. GI: No deficits noted. No signs and/or symptoms were reported involving the gastrointestinal system. : No deficits noted. No signs and/or symptoms were reported regarding the genitourinary system. Derm: No deficits noted. No signs and/or symptoms reported regarding the dermatologic system. Musculoskeletal: No deficits noted. No signs and/or symptoms reported regarding the musculoskeletal system. Historical: - Allergies: 17:07 Ancef; tl4 17:07 Dilaudid; tl4 17:07 Morphine; tl4 17:07 OxyContin; tl4 - Home Meds: 17:08 None [Active]; tl4 - PMHx: 17:07 Arthritis; Chronic pain; Hypertensive disorder; pulmonary embolus; tl4 - Immunization history:: Adult Immunizations unknown. - Social history:: Smoking status: Patient reports the use of cigarette tobacco products, smokes one pack cigarettes per day. Screenin:20 [place] ED Fall Risk Assessment (Adult) History of falling in the last 3 months, ha1 including since admission Yes- single mechanical fall (1 pt) Confusion or Disorientation No (0 pts) Intoxicated or Sedated No (0 pts) Impaired Gait Yes (1 pt) Mobility Assist Device Used Yes (1 pt) Altered Elimination No (0 pt) Score/Fall Risk Level 3 or more points = High Risk Oriented to surroundings, Maintained a safe environment, Educated pt \T\ family on fall prevention, incl call for assistance when getting out of bed, Hourly rounding (assess needs \T\ fall precautionary measures) done. Abuse screen: Denies threats or abuse. Denies injuries from another. Nutritional screening: No deficits noted. Tuberculosis screening: No symptoms or risk factors identified. Assessment: 19:20 General: Appears uncomfortable, Behavior is calm, cooperative. ha1 19:20 Pain: Complains of pain in body aches Pain does not radiate. Pain currently is 5 out of ha1 10 on a pain scale. Quality of pain is described as crampy, Pain began 2-3 days ago. Neuro: Level of Consciousness is awake, alert, obeys commands, Oriented to person, place, time, situation. Cardiovascular: Capillary refill < 3 seconds Patient's skin is warm and dry. Cardiovascular: Heart tones S1 S2 present Rhythm is sinus rhythm. Respiratory: Airway is patent Respiratory effort is even, unlabored, Respiratory pattern is regular, symmetrical, Breath sounds are clear bilaterally. Respiratory: Reports shortness of breath cough that is non-productive. GI: Abdomen is round non-distended, obese. GI: No signs and/or symptoms were reported involving the gastrointestinal system. Derm: Skin is pink, warm \T\ dry. Musculoskeletal: Circulation, motion, and sensation intact. Range of motion: intact in all extremities. 20:20 Reassessment: Patient and/or family updated on plan of care and expected duration. Pain ha1 level reassessed. Patient is alert, oriented x 3, equal unlabored respirations, skin warm/dry/pink. Patient denies pain at this time. Patient states feeling better. Patient states symptoms have improved. 21:00 Reassessment: Patient and/or family updated on plan of care and expected duration. Pain ha1 level reassessed. Patient is alert, oriented x 3, equal unlabored respirations, skin warm/dry/pink. Patient denies pain at this time. Patient states feeling better. Patient states symptoms have improved. 21:40 Reassessment: Patient and/or family updated on plan of care and expected duration. Pain ha1 level reassessed. Patient is alert, oriented x 3, equal unlabored respirations, skin warm/dry/pink. Vital Signs: 17:04 BP 157 / 92; Pulse 117; Resp 22; Temp 100.9(O); Pulse Ox 96% on R/A; Weight 123.38 kg; tl4 Height 5 ft. 7 in. ; Pain 8/10; 19:20 BP 147 / 94; Pulse 105; Resp 22 S; Pulse Ox 98% on R/A; ha1 21:00 BP 145 / 95; Pulse 92; Resp 20 S; Temp 98.2(O); Pulse Ox 97% on R/A; ha1 21:39 BP 128 / 79; Pulse 95; Resp 20 S; Pulse Ox 95% on R/A; ha1 17:04 Body Mass Index 42.60 (123.38 kg, 170.18 cm) tl4 17:04 Pain Scale: Adult tl4 ED Course: 16:46 Patient arrived in ED. mg5 16:48 Genia Ortega FNP-C [facility]. kb 16:48 Aguila Fox MD is Attending Physician. kb 17:07 Triage completed. tl4 17:07 Arm band placed on right wrist. tl4 17:38 Chest Single View XRAY In Process Unspecified. EDMS 19:10 Patient has correct armband on for positive identification. Placed in gown. Bed in low ha1 position. Call light in reach. Side rails up X 1. 19:58 Strep Sent. ha1 19:58 COVID-19 SARS RT PCR Sent. ha1 19:58 Flu Sent. ha1 20:10 Door closed. Noise minimized. Pillow given. ha1 21:11 Julianna Leal RN is Primary Nurse. ha1 21:21 Warm blanket given. ha1 21:22 No provider procedures requiring assistance completed. Patient did not have IV access ha1 during this emergency room visit. 22:01 Provided Education on: medication administration . ha1 Administered Medications: 19:40 Drug: Albuterol Inhalation 2.5 mg Inhalation once Route: Inhalation; ha1 20:20 Follow up: Response: No adverse reaction; Marked relief of symptoms ha1 19:40 Drug: Ipratropium Inhalation Aerosol 0.5 mg Inhalation once Route: Inhalation; ha1 20:20 Follow up: Response: No adverse reaction; Marked relief of symptoms ha1 19:40 Drug: Acetaminophen PO 650 mg PO once Route: PO; ha1 20:20 Follow up: Response: No adverse reaction; Marked relief of symptoms ha1 19:40 Drug: predniSONE PO 40 mg PO once Route: PO; ha1 20:15 Follow up: Response: No adverse reaction; Marked relief of symptoms ha1 21:39 Drug: Albuterol Inhalation 2.5 mg Inhalation once Route: Inhalation; ha1 22:03 Follow up: Response: No adverse reaction ha1 Medication: 21:22 VIS not applicable for this client. ha1 Outcome: 21:27 Discharge ordered by . trish 22:01 Discharged to home ambulatory, ha1 22:01 Condition: stable 22:01 Discharge instructions given to patient, family, Instructed on discharge instructions, follow up and referral plans. Demonstrated understanding of instructions, follow-up care, Prescriptions given X 3, 22:04 Patient left the ED. ha1 Signatures: Dispatcher [employer] EDMS Genia Ortega, ELVIS ESPINOSA-Julianna Smith RN RN 1 Carmen Mckeon 5 Franklin Herron RN RN tl4 Corrections: (The following items were deleted from the chart) 17:09 17:07 Home Meds: 'currently out of all meds'; tl4 tl4
[2023-10-24 22:16] VITALS: BP 128/79; TEMP 98.2; O2SAT 95
--- NOTE | 2023-10-25 14:14 | EKG ---
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
== END ==
LOC: ER 16:44
DX: R50.9 Fever, unspecified (principal); R05.9 Cough, unspecified; I10 Essential (primary) hypertension; F17.210 Nicotine dependence, cigarettes, uncomplicated; Z11.52 Encounter for screening for COVID-19; Z88.1 Allergy status to other antibiotic agents; Z88.5 Allergy status to narcotic agent
CPT/HCPCS: 87070; 87081; 87635; 87804 ×2; 71045; J7512; J7613 ×2; J7644; 93005; 99284

== ENCOUNTER 2025-06-05 15:15 | Emergency (ER) | payer OTHER ==
[2025-06-05] MEDS ORDERED: HYDROCODONE/APAP 10/325 TAB ONE (17:11)
[2025-06-05] MEDS ORDERED: IBUPROFEN 400 MG TAB ONE (17:11)
--- NOTE | 2025-06-05 18:26 | RAD REPORT ---
EXAMINATION: UPPER EXTREMITY VENOUS UNILATE CLINICAL INDICATION: Female, 54 years old. [facility]WE[facility] Bed Name: 11 TECHNIQUE: Complete venous duplex sonography of the right upper extremity was performed. The examinat ion included compression for vein patency, color Doppler imaging and flow augmentation in response to distal compression of the internal jugular, brachiocephalic, subclavian, axillary, brachial, radia l, ulnar, cephalic and basilic veins. COMPARISON: No prior exam. FINDINGS: Duplex sonography testing of the veins of the right upper extremity is completed. Partially occlusive thrombus along the brachial artery. Color flow imaging shows the remainder of the veins to be compressible with appropriate color filling. IMPRESSION: Partially occlusive thrombus along the brachial artery.
[2025-06-05 19:50] LABS: Absolute Lymphocytes (CBC) 2.7 K/uL (0.7-4.9); Hematocrit 42.3 % (36.0-45.0); Hemoglobin 14.2 g/dL (12.0-15.0); MCH 30.4 pg (27.0-35.0); MCHC 33.5 g/dL (32.0-36.0); MCV 90.7 fL (80-100); MPV 8.6 fL (7.6-11.3); Nucleated RBC Absolute Count 0.0 (0-0); Nucleated Red Blood Cells % 0.0 % (0-0); RBC Red Blood Cell Count 4.67 M/uL (3.86-4.86); White Blood Count 9.80 thou/uL (4.3-10.9)
[2025-06-05 19:59] LABS: PT Prothrombin Time 11.8 SECONDS (10-13.0); PTT, Activated Partial Thromb 35.8 SECONDS (27.2-37.4); Protime INR 1.05
[2025-06-05 20:05] LABS: Anion Gap 4.7 mEq/L (5.0-15.0); BUN Blood Urea Nitrogen 9.0 mg/dL (7-18); Glucose Level 97.0 mg/dL (74-106); Potassium 3.7 mEq/L (3.5-5.1)
[2025-06-05] MEDS ORDERED: RIVAROXABAN 20 MG TABLET PO ONE (20:32)
--- NOTE | 2025-06-05 20:56 | ER ---
Nurse's Notes [facility] Name: Jeri Valenzuela Age: 54 yrs Sex: Female : 1970 Arrival Date: 06/05/2025 Time: 15:15 Bed 11 Private MD: Diagnosis: Acute embolism and thrombosis of deep veins of right upper extremity Presentation: 06/05 15:38 Chief complaint: Patient states: broke my arm on the 7th, went to ortho yesterday and iw they put a cast on , is having discoloration and pressure to her fingers, was told to elevate her arm for a couple hours and see how it went. Coronavirus screen: At this time, the client does not indicate any symptoms associated with coronavirus-19. Ebola Screen: No symptoms or risks identified at this time. Initial Sepsis Screen: Does the patient meet any 2 criteria? No. Patient's initial sepsis screen is negative. Does the patient have a suspected source of infection? No. Patient's initial sepsis screen is negative. Risk Assessment: Do you want to hurt yourself or someone else? Patient reports no desire to harm self or others. Onset of symptoms was June 05, 2025. 15:38 Method Of Arrival: Ambulatory iw 15:38 Acuity: EMORY 4 iw Historical: - Allergies: 15:41 Ancef; iw 15:41 Dilaudid; iw 15:41 Morphine; iw 15:41 OxyContin; iw - PMHx: 15:41 Chronic pain; Arthritis; Hypertensive disorder; pulmonary embolus; iw - Immunization history:: Adult Immunizations up to date. - Infectious Disease History:: Denies. - Social history:: Smoking status: unknown. Screenin:46 [facility] ED Fall Risk Assessment (Adult) History of falling in the last 3 months, ha1 including since admission Yes- single mechanical fall (1 pt) Confusion or Disorientation No (0 pts) Intoxicated or Sedated No (0 pts) Impaired Gait No (0 pts) Mobility Assist Device Used No (0 pt) Altered Elimination No (0 pt) Score/Fall Risk Level 0 - 2 = Low Risk Oriented to surroundings, Maintained a safe environment, Educated pt \T\ family on fall prevention, incl call for assistance when getting out of bed, Hourly rounding (assess needs \T\ fall precautionary measures) done. Abuse screen: Denies threats or abuse. Denies injuries from another. Nutritional screening: No deficits noted. Tuberculosis screening: No symptoms or risk factors identified. Assessment: 17:00 Reassessment: Patient and/or family updated on plan of care and expected duration. Pain kb4 level reassessed. Patient is alert, oriented x 3, equal unlabored respirations, skin warm/dry/pink. Pain: Complains of pain in right arm Pain currently is 9 out of 10 on a pain scale. 17:29 Reassessment: did not receive NORCO due to pt not having a ride home. kb4 19:04 General: received report from waitstaff alyssa, all questions answered. kt5 19:11 Reassessment: Patient appears in no apparent distress at this time. Patient and/or kt5 family updated on plan of care and expected duration. Pain level reassessed. Patient is alert, oriented x 3, equal unlabored respirations, skin warm/dry/pink. Patient states feeling better. 20:48 Reassessment: Patient appears in no apparent distress at this time. Patient and/or kt5 family updated on plan of care and expected duration. Pain level reassessed. Patient is alert, oriented x 3, equal unlabored respirations, skin warm/dry/pink. Patient states feeling better. 21:32 Reassessment: Patient appears in no apparent distress at this time. Patient and/or kt5 family updated on plan of care and expected duration. Pain level reassessed. Patient is alert, oriented x 3, equal unlabored respirations, skin warm/dry/pink. Patient states symptoms have improved. 21:33 General: sling placed to right arm, pt tolerated well. kt5 Vital Signs: 15:43 BP 102 / 65; Pulse 78; Resp 16; Pulse Ox 99% on R/A; iw 19:11 BP 121 / 91; Pulse 64; Resp 18; Pulse Ox 94% ; Pain 6/10; kt5 20:48 BP 124 / 88; Pulse 68; Resp 18; Pulse Ox 94% ; kt5 21:32 BP 124 / 64; Pulse 66; Resp 16; Temp 98.4; Pulse Ox 99% ; Pain 5/10; kt5 19:11 Pain Scale: Adult kt5 21:32 Pain Scale: Adult kt5 ED Course: 15:17 Patient arrived in ED. mr 15:19 Richard Beckwith PA-C is PHCP. cp 15:19 Richard Haskins MD is Attending Physician. cp 15:40 Triage completed. iw 15:40 Arm band placed on. iw 17:28 Alyssa Phillip, ALLISON is Primary Nurse. kb4 18:11 UPPER EXTREMITY VENOUS UNILATE In Process Unspecified. EDMS 19:00 Patient has correct armband on for positive identification. Bed in low position. Call ha1 light in reach. Side rails up X 1. Client placed on continuous cardiac and pulse oximetry monitoring. NIBP monitoring applied. 19:46 Ptt, Activated Sent. ha1 19:46 BMP Sent. ha1 19:46 PT-INR Sent. ha1 19:46 CBC with Diff Sent. ha1 19:46 Inserted saline lock: 20 gauge in left antecubital area, using aseptic technique. Blood ha1 collected. Flushed with 10 mL NS. 21:33 Provided Education on: follow up and meds. kt5 21:33 No provider procedures requiring assistance completed. IV discontinued, intact, kt5 bleeding controlled, No redness/swelling at site. Pressure dressing applied. Administered Medications: 17:28 Not Given (NSG discression ): hydrocodone-[id number] mg-325 mg 1 tabs PO once kb4 17:28 Drug: Ibuprofen PO 800 mg PO once Route: PO; kb4 18:49 Follow up: Response: No adverse reaction kb4 20:34 CANCELLED (Physician Discretion): spkores75 mg PO once cp 20:35 Drug: Xarelto PO 20 mg PO once Route: PO; kt5 21:35 Follow up: Response: No adverse reaction kt5 Medication: 21:33 VIS not applicable for this client. kt5 Outcome: 20:55 Discharge ordered by . cp 21:33 Discharged to home ambulatory, kt5 21:33 Condition: stable 21:33 Discharge instructions given to patient, 21:36 Patient left the ED. kt5 Signatures: Dispatcher [employer] [facility] Otis Maddie, Shubham Reg Blanca Monzon, RN RN Richard Wasserman PA-C PA-C cp Ayala, Heidy, RN RN ha1 Alyssa Phillip RN RN kb4 Laisha Reddy RN RN kt5 Corrections: (The following items were deleted from the chart) 15:45 15:43 Pulse 78bpm; Resp 16bpm; Pulse Ox 99% RA; iw iw
--- NOTE | 2025-06-05 20:56 | EDPHYS ---
Physician Documentation [facility] Name: Jeri Valenzuela Age: 54 yrs Sex: Female : 1970 Arrival Date: 06/05/2025 Time: 15:15 Bed 11 Private MD: ED Physician Richard Haskins HPI: 06/05 15:55 This 54 yrs old Female presents to ER via Ambulatory with complaints of Hand cp Swelling. 15:55 The patient or guardian reports swelling, discoloration. cp 15:55 The complaints affect the right hand diffusely. Context: recent hx of right wrist cp fracture with casting at office of DR Barahona. Patient reports noticing swelling of right hand and fingers appeared discolored. No increase in pain. Reports PMHX significant for DVT and PE. Not currently taking blood thinner due to cost. Historical: - Allergies: 15:41 Ancef; iw 15:41 Dilaudid; iw 15:41 Morphine; iw 15:41 OxyContin; iw - PMHx: 15:41 Chronic pain; Arthritis; Hypertensive disorder; pulmonary embolus; iw - Immunization history:: Adult Immunizations up to date. - Infectious Disease History:: Denies. - Social history:: Smoking status: unknown. ROS: 16:00 Constitutional: Negative for body aches, chills, fever, poor PO intake, cp 16:00 Cardiovascular: Negative for chest pain, palpitations, cp 16:00 Respiratory: Negative for cough, shortness of breath, wheezing, 16:00 MS/extremity: Positive for swelling, of the right hand, 16:00 Eyes: Negative for injury, pain, redness, and discharge, cp 16:00 Abdomen/GI: Negative for abdominal pain, nausea, vomiting, and diarrhea, 16:00 Neuro: Negative for altered mental status, weakness, cp 16:00 All other systems are negative, Exam: 16:05 Constitutional: The patient appears in no acute distress, alert, awake, cp non-diaphoretic, non-toxic, well developed, well nourished, 16:05 Head/Face: Normocephalic, atraumatic. cp 16:05 Eyes: Periorbital structures: appear normal, Conjunctiva: normal, no exudate, no injection, Lids and lashes: appear normal, bilaterally, 16:05 ENT: External ear(s): are unremarkable, Nose: is normal, Mouth: Lips: moist, Oral mucosa: moist, Posterior pharynx: Airway: no evidence of obstruction, patent, 16:05 Chest/axilla: Inspection: normal, Palpation: is normal, no crepitus, no tenderness, 16:05 Cardiovascular: Rate: normal, Rhythm: regular, Pulses: Pulses are 2+ in right radial artery. JVD: is not appreciated, 16:05 Respiratory: the patient does not display signs of respiratory distress, Respirations: normal, no use of accessory muscles, no retractions, labored breathing, is not present, Breath sounds: are clear throughout, no decreased breath sounds, no stridor, no wheezing, 16:05 Abdomen/GI: Inspection: abdomen appears normal, Palpation: abdomen is soft and non-tender, in all quadrants, 16:05 Musculoskeletal/extremity: Extremities: noted in the right hand: ecchymosis, swelling, cast in place right wrist and forearm. 16:05 Neuro: Orientation: to person, place \T\ time. Mentation: is normal, Vital Signs: 15:43 BP 102 / 65; Pulse 78; Resp 16; Pulse Ox 99% on R/A; iw 19:11 BP 121 / 91; Pulse 64; Resp 18; Pulse Ox 94% ; Pain 6/10; kt5 20:48 BP 124 / 88; Pulse 68; Resp 18; Pulse Ox 94% ; kt5 21:32 BP 124 / 64; Pulse 66; Resp 16; Temp 98.4; Pulse Ox 99% ; Pain 5/10; kt5 19:11 Pain Scale: Adult kt5 21:32 Pain Scale: Adult kt5 MDM: 15:40 Medical Screening Exam initiated cp 19:00 Differential diagnosis: dependent edema, DVT, cellulitis. 20:55 Data reviewed: vital signs, nurses notes, lab test result(s), radiologic studies, cp ultrasound, and as a result, I will discharge patient. 20:55 I considered the following discharge prescriptions or medication management in the emergency department Medications were administered in the Emergency Department. See MAR. 20:55 Counseling: I had a detailed discussion with the patient and/or guardian regarding the historical points, exam findings, and any diagnostic results supporting the discharge/admit diagnosis, lab results, radiology results, the need for outpatient follow up, a family practitioner, to return to the emergency department if symptoms worsen or persist or if there are any questions or concerns that arise at home. Response to treatment: the patient's symptoms have mildly improved after treatment, and as a result, I will discharge patient. 06/05 18:15 Order name: CBC with Diff; Complete Time: 20:14 cp 06/05 20:15 Interpretation: Reviewed. cp 06/05 18:15 Order name: PT-INR; Complete Time: 20:14 cp 06/05 18:15 Order name: Ptt, Activated; Complete Time: 20:14 cp 06/05 18:15 Order name: BMP; Complete Time: 20:14 cp 06/05 20:15 Interpretation: Normal except: CO2 33; ANION GAP 4.7. cp 06/05 17:21 Order name: UPPER EXTREMITY VENOUS UNILATE; Complete Time: 20:14 EDMS 06/05 20:15 Interpretation: Report reviewed. cp 06/05 15:51 Order name: Misc. Order: cast removal right wrist; Complete Time: 18:49 cp 06/05 19:40 Order name: Splint - Sugar Tong - Forearm; Complete Time: 21:19 cp 06/05 21:20 Order name: Sling; Complete Time: 21:24 cp Administered Medications: 17:28 Not Given (NSG discression ): hydrocodone-[id number] mg-325 mg 1 tabs PO once kb4 17:28 Drug: Ibuprofen PO 800 mg PO once Route: PO; kb4 18:49 Follow up: Response: No adverse reaction kb4 20:34 CANCELLED (Physician Discretion): mg PO once cp 20:35 Drug: Xarelto PO 20 mg PO once Route: PO; kt5 21:35 Follow up: Response: No adverse reaction kt5 Disposition: 06/06 08:33 Co-signature as Attending Physician, Richard Haskins MD I agree with the assessment and betsey plan of care. Disposition Summary: 06/05/25 20:55 Discharge Ordered Notes: Location: Home cp Condition: Stable cp Diagnosis - Acute embolism and thrombosis of deep veins of right upper extremity cp Followup: cp - With: Private Physician - When: 1 week - Reason: Recheck today's complaints Discharge Instructions: - Discharge Summary Sheet cp - Deep Vein Thrombosis cp - Bleeding Precautions When on Anticoagulant Therapy, Adult cp Forms: - Medication Reconciliation Form cp - Antibiotic Education cp - Prescription Opioid Use cp - Patient Portal Instructions cp - Leadership Thank You Letter cp Prescriptions: - Xarelto 15 mg Oral tablet - take 1 tablet ORAL route 2 times per day for 21 days; 42 tablet; Refills: 0, cp Product Selection Permitted Signatures: Dispatcher [employer] EDRichard Denny MD MD cha Williams, Irene, RN RN iw Richard Beckwith, PA-C PA-C cp Alyssa Phillip, RN RN kb4 Laisha Reddy RN RN kt5 Corrections: (The following items were deleted from the chart) 06/05 17:21 16:49 Extremity Venous Uni Ltd+US.RAD.BRZ ordered. EDMS EDMS 18:16 18:16 CBC+H.LAB.BRZ ordered. EDMS EDMS 18:16 18:16 PROTIME (+INR)+COAG.LAB.BRZ ordered. EDMS EDMS 18:16 18:16 PTT, ACTIVATED+COAG.LAB.BRZ ordered. EDMS EDMS 18:16 18:16 BASIC METABOLIC PANEL+C.LAB.BRZ ordered. EDMS EDMS 20:34 20:19 Xarelto PO 15 mg PO once ordered. cp cp
[2025-06-06 03:32] VITALS: BP 124/64; TEMP 98.4; O2SAT 99
== END 2025-06-05 21:36 | disposition home or self-care (01) ==
LOC: ER 15:15
DX: I82.621 Acute embolism and thrombosis of deep veins of right upper extremity (principal); Z86.718 Personal history of other venous thrombosis and embolism; Z86.711 Personal history of pulmonary embolism
CPT/HCPCS: 36415; 80048; 85025; 85610; 85730; 93971; 99284